=== PATIENT | female | born 1980 | race Caucasian/White ===

== ENCOUNTER 2017-03-27 16:35 | Emergency (ER) | payer OTHER ==
[2017-03-27 17:06] VITALS: TEMP 98.2; BMI 27.3
--- NOTE | 2017-03-27 19:44 | PDOC ---
History of Present Illness - General History Source: Patient Exam Limitations: No Limitations - History of Present Illness Initial Comments: 03/27/17 19:55 The patient is a 37-year-old female, with a significant past medical history of chronic lower back pain (L1-S5), who presents to the ED with vaginal bleeding, back pain, and suprapubic pain. The patient went to [facility] days ago and received methotrexate for an unwanted . She was 9 weeks at the time she received the medication. She is now having suprapubic pain and she took a test at home that came out positive. The pt is leaving to [facility] on 04/05 so she is concerned if the medication worked and if she has a UTI since she noted that her urine is foul- smelling (has hx of UTIs). The patient does report that she is experiencing vaginal bleeding at this time. The patient denies any fever, chills, nausea, vomiting, or diarrhea. She denies any chest pain or shortness of breath. <Tran Escobar - Last Filed: 03/27/17 19:53> <Bertha Botello - Last Filed: 03/28/17 01:18> - General Chief Complaint: Back Pain Stated Complaint: PAIN, ACUTE Time Seen by Provider: 03/27/17 17:45 Past History <Tran Escobar - Last Filed: 03/27/17 19:53> - Past Medical History GI Disorders: Yes (?"INFLAMED COLON") - Suicide/Smoking/Psychosocial Hx Smoking History: Never smoked Have you smoked in the past 12 months: No Hx Alcohol Use: No Drug/Substance Use Hx: No <Bertha Botello - Last Filed: 03/28/17 01:18> - Past Medical History Allergies/Adverse Reactions: Allergies Allergy/AdvReac Type Severity Reaction Status Date / Time No Known Allergies Allergy Verified 03/27/17 18:11 Home Medications: Ambulatory Orders NK [No Known Home Medication] 03/27/17 Review of Systems - Review of Systems Able to Perform ROS?: Yes Comments:: 03/27/17 19:56 CONSTITUTIONAL: Absent: fever, chills, diaphoresis, generalized weakness, malaise, loss of appetite HEENT: Absent: rhinorrhea, nasal congestion, throat pain, throat swelling, difficulty swallowing, mouth swelling, ear pain, eye pain, visual Changes CARDIOVASCULAR: Absent: chest pain, syncope, palpitations, irregular heart rate, lightheadedness , peripheral edema RESPIRATORY: Absent: cough, shortness of breath, dyspnea with exertion, orthopnea, wheezing, stridor, hemoptysis GASTROINTESTINAL: Present: abdominal pain Absent: abdominal distension, nausea, vomiting, diarrhea, constipation, melena, hematochezia GENITOURINARY: Present: vaginal bleeding Absent: dysuria, frequency, urgency, hesitancy, hematuria, flank pain, genital pain MUSCULOSKELETAL: Present: Lower back pain Absent: arthralgia, joint swelling SKIN: Absent: rash, itching, pallor HEMATOLOGIC/IMMUNOLOGIC: Absent: easy bleeding, easy bruising, lymphadenopathy, frequent infections ENDOCRINE: Absent: unexplained weight gain, unexplained weight loss, heat intolerance, cold intolerance NEUROLOGIC: Absent: headache, focal weakness or paresthesias, dizziness, unsteady gait, seizure, mental status changes, bladder or bowel incontinence PSYCHIATRIC: Absent: anxiety, depression, suicidal or homicidal ideation, hallucinations. <Tran Escobar - Last Filed: 03/27/17 19:53> *Physical Exam - Vital Signs Last Vital Signs Temp Pulse Resp BP Pulse Ox 98.2 F 95 H 20 127/78 97 03/27/17 17:01 03/27/17 17:01 03/27/17 17:01 03/27/17 17:01 03/27/17 17:01 - Physical Exam Comments: 03/27/17 19:57 GENERAL: Well developed, well nourished. Awake and alert. No acute distress. HEENT: Normocephalic, atraumatic. PERRLA, EOMI. No conjunctival pallor. Sclera are non- icteric. Moist mucous membranes. Oropharynx is clear. NECK: Supple. Full ROM. No JVD. Carotid pulses 2+ and symmetric, without bruits. No thyromegaly. No lymphadenopathy. CARDIOVASCULAR: Regular rate and rhythm. No murmurs, rubs, or gallops. Distal pulses are 2+ and symmetric. PULMONARY: No evidence of respiratory distress. Lungs clear to auscultation bilaterally. No wheezing, rales or rhonchi. ABDOMINAL: Soft belly. Non-tender. Non-distended. No rebound or guarding. No organomegaly. Normoactive bowel sounds. MUSCULOSKELETAL Normal range of motion at all joints. No bony deformities or tenderness. No CVA tenderness. EXTREMITIES: No cyanosis. No clubbing. No pitting edema. No calf tenderness. SKIN: Warm and dry. Normal capillary refill. No rashes. No jaundice. NEUROLOGICAL: Alert, awake, appropriate. PSYCHIATRIC: Cooperative. Good eye contact. Appropriate mood and affect. <Tran Escobar - Last Filed: 03/27/17 19:53> - Vital Signs Last Vital Signs Temp Pulse Resp BP Pulse Ox 98.2 F 95 H 20 127/78 97 03/27/17 17:01 03/27/17 17:01 03/27/17 17:01 03/27/17 17:01 03/27/17 17:01 <Bertha Botello - Last Filed: 03/28/17 01:18> ED Treatment Course - LABORATORY CBC & Chemistry Diagram: 03/27/17 21:00 <Bertha Botello - Last Filed: 03/28/17 01:18> *DC/Admit/Observation/Transfer - Attestations Scribe Attestion: 03/27/17 19:58 Documentation prepared by Tran Escobar, acting as biomedical specialist for Bertha Botello MD. <Tran Escobar - Last Filed: 03/27/17 19:53> <Bertha Botello - Last Filed: 03/28/17 01:18> Diagnosis at time of Disposition: On methotrexate therapy, Incomplete spontaneous - Discharge Dispostion Disposition: HOME Condition at time of disposition: Stable - Referrals Referrals: Asuncion Bob MD [Primary Care Provider] - - Patient Instructions Printed Discharge Instructions: DI for Therapeutic : Medical Additional Instructions: 1. It is important to see your benzene washer operator to have a repeat BHCG and PELVIC US within 1 week 2. Return for any worsening symptoms
[2017-03-27] MEDS ORDERED: ACETAMINOPHEN 500 MG TABLET (FP) PO ONE (20:42)
[2017-03-27 21:08] LABS: BASOPHIL 1.3 % (0-2.0); EOSINOPHIL 1.4 % (0-4.5); MCH 28.5 pg (25.7-33.7); MCHC 33.9 g/dl (32.0-36.0); MEAN PLT VOLUME 7.6 fl (7.5-11.1); PLATELET COUNT 386 K/MM3 (134-434); RDW 13.5 % (11.6-15.6); WHITE BLOOD COUNT 12.4 K/mm3 (4.0-10.0)
[2017-03-27] MEDS ORDERED: ACETAMINOPHEN 325 MG TABLET (FP) ONE (21:51)
[2017-03-27 22:00] LABS: URINE APPEARANCE CLOUDY; URINE BILIRUBIN NEGATIVE (NEGATIVE); URINE BLOOD 3+ (NEGATIVE); URINE COLOR LTYELLOW; URINE GLUCOSE (UA) NEGATIVE (NEGATIVE); URINE KETONE NEGATIVE (NEGATIVE); URINE LEUK ESTERASE NEGATIVE (NEGATIVE); URINE NITRITE NEGATIVE (NEGATIVE); URINE PROTEIN NEGATIVE (NEGATIVE); URINE UROBILINOGEN NEGATIVE mg/dL (0.2-1.0)
[2017-03-27 22:08] LABS: URINE MUCUS RARE; URINE RBC 179 /hpf (0-3); URINE WBC 9 /hpf (3-5); YEAST FEW
[2017-03-28 01:30] VITALS: BP 140/60; PULSE 69
== END 2017-03-28 01:30 | disposition home or self-care (01) ==
LOC: JER 16:35
DX: O03.1 Delayed or excessive hemorrhage following incomplete spontaneous abortion (principal)
CPT/HCPCS: 36415; 76817-TC; 81003; 81015; 84702; 85025; 99282-25